=== PATIENT | male | born 1995 | race Caucasian/White ===

== ENCOUNTER 2025-02-14 09:19 | Emergency (ER) | payer SELFPAY ==
[2025-02-14] MEDS ORDERED: Acetaminophen/HYDROcodone 325-5 MG Tab ONE (09:30)
== END 2025-02-14 09:47 | disposition home or self-care (01) ==
LOC: LB.ED 09:19
DX: K04.7 Periapical abscess without sinus (principal); F17.200 Nicotine dependence, unspecified, uncomplicated; Z88.0 Allergy status to penicillin
CPT/HCPCS: 99283; A9270-GY

== ENCOUNTER 2025-02-15 13:35 | Emergency (ER) | payer SELFPAY ==
[2025-02-15] MEDS ORDERED: Acetaminophen/oxyCODONE 325-5 MG Tab ONE (15:00)
== END 2025-02-15 15:25 | disposition home or self-care (01) ==
LOC: LB.ED 13:35
DX: K04.7 Periapical abscess without sinus (principal); Z88.0 Allergy status to penicillin; Z88.8 Allergy status to other drugs, medicaments and biological substances; Z79.899 Other long term (current) drug therapy
CPT/HCPCS: 41800; 96365; 96372; 99283-25; A9270-GY; J1171; J2003; J3490